=== PATIENT | female | born 1940 | race Caucasian/White ===

== ENCOUNTER 2017-07-31 08:56 | Emergency (ER) | payer MEDICARE, OTHER ==
[2017-07-31] MEDS ORDERED: RABIES VACCINE,HUMAN DIPLOID 2.5 UNITS VIAL IM ONE (09:50)
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
[2017-07-31 10:52] VITALS: BP 174/81
[2017-07-31] MEDS ORDERED: RABIES IMMUNE GLOBULIN 150 UNITS/ML ML IM ONE (11:00)
== END 2017-07-31 10:55 | disposition short-term general hospital (02) ==
LOC: ER 08:56
DX: Z20.3 Contact with and (suspected) exposure to rabies (principal)